=== PATIENT | female | born 1955 | race Caucasian/White ===

== ENCOUNTER 2017-02-18 22:31 | Emergency (ER) | payer OTHER ==
[~2017-02-18] VITALS: Ht 152.4 cm; Wt 66.0 kg
[2017-02-18 22:47] VITALS: Ht 152.4 cm; Wt 66.0 kg
--- NOTE | 2017-02-19 01:43 | ERD ---
ER Documentation Chief Complaint Date/Time DATE: 02/19/17 TIME: 01:40 Chief Complaint foreign body is stuck in the ureteral meatus and vaginal area after ultrasound was done 2 days ago HPI 61-year-old female presents here in emergency department for complaints of pain in the ureteral area and vaginal area after a catheter used to help control her bladder got stuck can be removed after doing a vaginal ultrasound. Patient does not have any blood in the urine, does not have any vaginal bleeding. Patient's complaint of pain sharp pain 4/10 scale, feels that it is slanted side towards, and able to remove it, she is here today to have it removed. Patient has an OB appointment tomorrow, and is scheduled to have a surgery to be done on Saturday. ROS All systems reviewed and are negative except as per history of present illness. Medications Home Meds Active Scripts Doxycycline Hyclate* (Doxycycline Hyclate*) 100 Mg Tablet.dr, 100 MG PO BID for 10 Days, TAB Prov:PREET HEMPHILL NP 02/19/17 Metronidazole* (Flagyl*) 500 Mg Tablet, 500 MG PO TID for 10 Days, TAB Prov:PREET HEMPHILL NP 02/19/17 Reported Medications [none] Unknown Strength No Conflict Check 02/19/17 Allergies Allergies: Coded Allergies: No Known Allergy (Unverified , 02/18/17) PMhx/Soc Medical and Surgical Hx: pt denies Medical Hx, pt denies Surgical Hx Hx Alcohol Use: No Hx Substance Use: No Hx Tobacco Use: No Smoking Status: Never smoker FmHx Family History: No coronary disease, No diabetes, No other Physical Exam Vitals Vital Signs Date Time Temp Pulse Resp B/P Pulse Ox O2 Delivery O2 Flow Rate FiO2 02/18/17 22:47 96.5 69 18 146/69 98 Physical Exam GENERAL: The patient is well developed and appropriate for usual state of health, in no apparent distress. CHEST: Clear to auscultation bilaterally. There are no rales, wheezes or rhonchi. HEART: Regular rate and rhythm. No murmurs, clicks, rubs or gallops. No S3 or S4. ABDOMEN: Soft, nontender and nondistended. Good bowel sounds. No rebound or guarding. No gross peritonitis. No gross organomegaly or masses. No Browne sign or McBurney point tenderness. BACK: No midline or flank tenderness. EXTREMITIES: Equal pulses bilaterally. There is no peripheral clubbing, cyanosis or edema. No focal swelling or erythema. Full range of motion. Grossly neurovascularly intact. NEURO: Alert and oriented. Cranial nerves 2-12 intact. Motor strength in all 4 extremities with 5/5 strength. Sensation grossly intact. Normal speech and gait. SKIN: There is no apparent rash or petechia. The skin is warm and dry. HEMATOLOGIC AND LYMPHATIC: There is no evidence of excessive bruising or lymphedema. No gross cervical, axillary, or inguinal lymphadenopathy. VAGINAL: note white pessary in the vaginal vault, with yellowish discharge, foul smelling noted. no CMT Results 24 hrs Current Medications Medications (Trade) Dose Ordered Sig/Candido Route PRN Reason Start Time Stop Time Status Last Admin Dose Admin Ceftriaxone Sodium (Rocephin) 1 gm ONCE ONCE IM 02/19/17 02:00 02/19/17 02:01 DC 02/19/17 02:20 Procedures/MDM Medical decision making: Patient symptoms most likely is consistent with foreign body, pessary noted in the vaginal vault, most likely with secondary infection, patient was given IM Rocephin here in the emergency department, will be given doxycycline and Flagyl, no symptoms of pelvic inflammatory disease at this time, not febrile, no vomiting, no symptoms of any sepsis at this time, no symptoms of any toxic shock syndrome. Patient has an appointment with OB doctor tomorrow, is advised to follow-up with her tomorrow for further evaluation of symptoms. Patient was advised to return to emergency department for any worsening symptoms. Disposition: Home. Stable Departure Diagnosis: Primary Impression: Vaginal foreign body Encounter type: initial encounter Qualified Code: T19.2XXA - Foreign body in vagina, initial encounter Condition: Stable Patient Instructions: Vaginal Foreign Body, Removed (Adult) PREET HEMPHILL NP Feb 19, 2017 01:43
[2017-02-19] MEDS ORDERED: METR500T PO (01:57)
[2017-02-19] MEDS ORDERED: DOXY100T20 PO (01:57)
[2017-02-19] MEDS ORDERED: CEFTRIAXONE 1 GM INJ IM ONE (02:00)
[2017-02-20] MEDS ORDERED: ATOR10TA65 PO (07:06)
[2017-02-20] MEDS ORDERED: LEVO0.5P MC (07:06)
== END 2017-02-19 01:57 | disposition home or self-care (01) ==
LOC: FTE 22:31
DX: T19.2XXA Foreign body in vulva and vagina, initial encounter (principal); X58.XXXA Exposure to other specified factors, initial encounter; Y92.9 Unspecified place or not applicable
CPT/HCPCS: 96372; J0696; Z7502

== ENCOUNTER 2017-02-20 05:59 | Inpatient (IN) | payer OTHER ==
--- NOTE | 2017-02-18 12:41 | PREOPHP ---
DATE OF ADMISSION: 02/19/2017 PROCEDURE: Vaginal hysterectomy surgical approach. HISTORY OF PRESENT ILLNESS: This is a 61-year-old female who is IV, para III, section x1, 2 vaginal deliveries, 1 and 3 living children. The patient's last period was at age 48. She has vaginal prolapse and she had been having difficulties urinating due to the bladder coming outside herself and the uterus also coming outside herself for the last 1 year. She has not been sexually active. She also suffers from constipation and she would like to have these surgically approached. ALLERGIES: THE PATIENT HAS NO ALLERGIES. SOCIAL HISTORY: She has no history of drug use. She does not drink or smoke. FAMILY HISTORY: Hypertension, breast cancer, heart attacks, diabetes, strokes, epilepsy, kidney stones in the past. REVIEW OF SYSTEMS: The review of system is non-contributory. MEDICATIONS: She is on Anusol for hemorrhoids. Atorvastatin for cholesterol. Calcium, Cyclobenzaprine 10 mg at bedtime. Flonase, ibuprofen, thyroid, Maxalt, omeprazole and something for cough like to lisa GRIFFITH. PHYSICAL EXAMINATION: GENERAL: The patient's general appearance is good. VITAL SIGNS: The blood pressure is 120/78, pulse is 80, and she is afebrile. She weighs 145, she is 5 feet and 1 inch. HEENT: The head and neck is normal. BREASTS: Soft, nontender, no masses. LUNGS: Clear. HEART: Normal sinus rhythm. BACK: Normal. ABDOMEN: Soft, nontender, no masses. GENITALIA: Bladder and cervix that is outside. The vagina is very small. There is a rectocele as well. Uterus retroverted, normal size. Adnexa negative. RECTAL: Examination is normal. EXTREMITIES: Normal. DIAGNOSIS: 1. Complete uterovaginal prolapse. 2. Urinary retention. 3. Mixed incontinence. 4. Rectocele with constipation. PLAN: She is undergoing a vaginal total hysterectomy, anterior- posterior repair with a sling and a graft. She has been advised of the possible risks and possible complications of the procedure with alternatives and options. Written information was provided. She was given the option of undergoing the procedure with the sling and without the sling, with all the possible complications of the sling. She understood everything and agreed to go ahead with the sling and a graft, and she was given the possible alternatives and options, written information had been also provided about that and she agreed to go ahead with the procedure. With full understanding and no more questions. Dictated By: Filomena Guerrier MD /isabel/mina /Document#: [id number]
[2017-02-19 09:23] VITALS: BMI 27.1
[~2017-02-20] VITALS: Ht 152.4 cm; Wt 64.0 kg
[2017-02-20] VITALS (22 sets, daily range): BP systolic 110–135; BP diastolic 51–71; PULSE 61–98; RESP 8–20; Ht 152.4 cm; Wt 64.0 kg
[~2017-02-20 05:59] MED LIST: DOXY100T20 PO; METR500T PO
[2017-02-20] MEDS ORDERED: CEFAZOLIN 2 GM/50 ML (PMX) 50 ML IVPB SCH (06:00)
[2017-02-20] MEDS ORDERED: DEXTROSE 5%-LR 1,000 ML IV SCH (06:35)
[2017-02-20] MEDS ORDERED: EPHEDrine SULFATE 50 MG/5 ML SYG ONE (07:00)
[2017-02-20] MEDS ORDERED: CEFAZOLIN 1 GM INJ ONE (07:00)
[2017-02-20] MEDS ORDERED: ATOR10TA65 PO (07:06)
[2017-02-20] MEDS ORDERED: LEVO0.5P MC (07:06)
--- NOTE | 2017-02-20 07:48 | HPN ---
Date/Time of Note Date/Time of Note DATE: 02/20/17 TIME: 07:47 Interval H&P Admission Note Pt. seen H&P reviewed: No system changes ERNESTO WONG MD Feb 20, 2017 07:48
[2017-02-20] MEDS ORDERED: FENTAnyl 50 MCG/ML VIAL ONE (07:55)
[2017-02-20] MEDS ORDERED: SUCCINYLCHOLINE CHLORIDE 100 MG/5 ML SYG IV ONE (07:55)
[2017-02-20] MEDS ORDERED: LIDOCAINE 2% (SDV) 5 ML INJ ONE (07:55)
[2017-02-20] MEDS ORDERED: PROPOFOL 20 ML ONE (07:55)
[2017-02-20] MEDS ORDERED: MIDAZOLAM 1 MG/ML 2 ML INJ ONE (07:55)
[2017-02-20] MEDS ORDERED: LEVOTHYROXINE 50 MCG TAB PO ONE (08:00)
[2017-02-20] MEDS ORDERED: HYDROmorphONE 1 MG/ML SYG IV PRN (08:00)
[2017-02-20] MEDS ORDERED: DIPHENHYDRAMINE 50 MG CAP PO PRN (08:00)
[2017-02-20] MEDS ORDERED: ZOLPIDEM 5 MG TAB PO PRN (08:00)
[2017-02-20] MEDS ORDERED: HYDROCODONE/APAP (5/325) TAB PO PRN (08:00)
[2017-02-20] MEDS ORDERED: BISACODYL (EC) 5 MG TAB PO PRN (08:00)
[2017-02-20] MEDS ORDERED: ONDANSETRON 4 MG INJ ONE (08:40)
[2017-02-20] MEDS ORDERED: HYDROmorphONE 2 MG/ML SYG ONE (08:40)
[2017-02-20] MEDS ORDERED: ACETAMINOPHEN 1000MG/100ML IV 100 ML ONE (08:40)
[2017-02-20] MEDS ORDERED: ROCURONIUM 50 MG INJ ONE (08:40)
[2017-02-20] MEDS ORDERED: DEXAMETHASONE 4 MG/ML 1 ML INJ ONE (08:40)
[2017-02-20] MEDS ORDERED: METOCLOPRAMIDE 10 MG INJ ONE (08:40)
[2017-02-20] MEDS: BUPIVACAINE 0.5%/EPI (SDV) 10 ML INJ ONE ×2 (08:45→10:26)
[2017-02-20] MEDS ORDERED: THROMBIN 5000 UNIT VIAL ONE (09:42)
[2017-02-20] MEDS ORDERED: POLYMYXIN/BACITRACIN 1L IRRIG ONE (09:42)
[2017-02-20] MEDS ORDERED: BUPIVACAINE 0.5%/EPI (SDV) 10 ML INJ ONE (09:46)
[2017-02-20] MEDS ORDERED: NEOSTIGMINE 3 MG/3 ML SYRINGE ONE (09:48)
[2017-02-20] MEDS ORDERED: GLYCOPYRROLATE 0.4 MG INJ ONE (09:48)
[2017-02-20] MEDS ORDERED: DIPHENHYDRAMINE 50 MG INJ IV PRN (10:00)
[2017-02-20] MEDS ORDERED: oxyCODONE 5 MG TAB PO PRN (10:00)
[2017-02-20] MEDS ORDERED: HYDROmorphONE (0.2 MG/ML) 10ML SYG IV PRN ×2 (10:00)
[2017-02-20] MEDS ORDERED: FENTAnyl 50 MCG/ML VIAL IV PRN (10:00)
[2017-02-20] MEDS ORDERED: ONDANSETRON 4 MG INJ IV PRN (10:00)
[2017-02-20] MEDS ORDERED: PROCHLORPERAZINE 10 MG INJ IV PRN (10:00)
[2017-02-20] MEDS ORDERED: MEPERIDINE 25 MG INJ IV PRN (10:00)
[2017-02-20] MEDS: LACTATED RINGER'S 1,000 ML IV SCH ×2 (10:46→15:38)
--- NOTE | 2017-02-20 10:51 | OPR ---
Date/Time of Note Date/Time of Note DATE: 02/20/17 TIME: 10:45 Operative Report Free Text/Dictation TOTAL VAGINAL HYSTERECTOMY BILATERAL SALPINGECTOMY A&P REPAIR, OBTRYX SUBURETHRAL SLING ACELL AND XENFORM GRAFT CYSTOSCOPY Procedure Date: Feb 20, 2017 Preoperative Diagnosis COMPLETE UTEROVAGINAL PROLAPSE MIXED INCONTINENCE CONSTIPATION PELVIC PAIN Postoperative Diagnosis SAME Surgeon: ERNESTO WONG MD Head End Desizing Machine Operator: MADELEINE VIZCARRA MD Anesthesia Type: general Anesthesiologist: NARA CHEATHAM MD Estimated Blood Loss: 10 - 50 ml's Transfusion Required: no Specimens UTERUS,TUBES AND VAGINAL MUCOSA Grafts/Implants ACELL,AND XENFORM GRAFT OBTRYX SLING Complications: no Pt Condition Post Procedure: stable Disposition: PACU ERNESTO WONG MD Feb 20, 2017 10:51
--- NOTE | 2017-02-20 11:53 | OPR ---
DATE OF OPERATION: 02/20/2017 OPERATION PERFORMED: Vaginal total hysterectomy, bilateral salpingectomy, anterior and posterior colporrhaphy, Obtryx suburethral sling, Xenform graft, ACell graft and cystoscopy. ANESTHESIA: Under general anesthesia with Dr. Painter. PREOPERATIVE DIAGNOSES: 1. Complete uterovaginal prolapse. 2. Mixed incontinence. 3. Constipation. POSTOPERATIVE DIAGNOSES: 1. Complete uterovaginal prolapse. 2. Mixed incontinence. 3. Constipation. SURGEON: Dr. Guerrier. ANESTHESIOLOGIST: Dr. Painter. HAT LINING BLOCKER: Dr. Foley. ESTIMATED BLOOD LOSS: Minimal. COMPLICATIONS: None. OPERATIVE PROCEDURE: The patient was given general anesthesia, placed in the lithotomy position. The perineal and vaginal area were prepped and draped, and the cervix was noted to be at the introitus. The cervix was grabbed with a Teo clamp and injection of Xylocaine and epinephrine were given at the cervicovaginal junction all around the cervix. The posterior cul- de-sac was found. The anterior cul-de-sac was found and the cardinal ligaments were cauterized with a bipolar ligature instrument under 3 lights for wattage. The uterine vessels were also ligated with fulguration with the LigaSure instrument. The uterus was inverted, and the adnexal pedicles were clamped with Samara clamps, removing the uterus. The adnexal pedicles were sutured with figure-of-8 sutures with #1 Vicryl and this was double ligated with the same stitch. The hemostasis was good. At this time, the chips were removed using the ligature instrument with hydrosalpinx in both sides. The hemostasis was good and the peritonealization was done after checking that the ovaries were normal. They were both very atrophic and normal. The peritonealization of the pelvic area was done with #0 pursestring suture to the perineum. The cardinal ligaments were tied to each lateral side and both ligaments stitches were brought to the posterior and anterior vaginal cuff externally. The vaginal opening was closed in a vertical fashion with a #2-0 Vicryl and tying the adnexal pedicles, the left of the vaginal cuff was observed. Now a Ware catheter was placed in the bladder. A midline incision was made 2 cm below the urethral meatus all the way down to the vaginal cuff injecting the Xylocaine and epinephrine and a midline incision was made. The cystocele was from the anterior vaginal mucosa. The cystocele was reduced with a pursestring suture with 2-0 Vicryl. At this time, the Obtryx needle was going to be introduced through the obturator membrane and be retrieved urethrally, vaginally. The area of entrance was marked with a pen parallel to the clitoris, 2 cm below the adductor longus tendon. A romy was done, and the skin was opened with a knife and the needles were introduced. The Obtryx sling was attached to the needles, the needles were retrieved back to the same obturator membrane area and the arms of the Obtryx were passed through the obturator canal. A piece of ACell and a piece of Xenform were applied underneath the Obtryx sling to separate the sling from the ureteral area. These 2 grafts were attached to the side of the connective tissue ureterally with a 2-0 Vicryl suture. The sling was adjusted and was covered up again on the other side with a piece of Xenform and a piece of ACell graft. Surgiflo was use to both corners to control venous bleeding, which had been controlled very tightly. The vagina was closed with interrupted sutures with 2-0 Vicryl. A cystoscopy was done by removing the Ware catheter and injection of saline was done through the bag to the bladder. The bladder patrick were checked and they were in good condition. Both ureters were draining urine with no problems. The cystoscopy was finished by removing the instruments and re-applying the Ware catheter. The posterior repair was started by making a triangular incision at the perineal area. Injection of Xylocaine and epinephrine were given in the midline posteriorly about 5 cm up the vaginal canal. A midline incision was made. The rectocele was from the posterior vaginal mucosa. The rectocele was reduced with 2-0 Vicryl sutures and a piece of vaginal mucosa was removed and the vagina was closed with 2-[address] the way down vertically. At the perineal area, an 0 Vicryl suture was passed through the levator and then from 1 side to the other side obtaining a good lifting of the perineal area. The superficial layers were closed with 2-0 Vicryl and 3-0 Vicryl, and the patient tolerated the procedure well at this time and blood loss was minimal. The urine was clear at the end of the procedure. Xeroform gauze was left in the vagina for pressure and the urine was clear at the end of the procedure. The patient tolerated the procedure well and left the OR awake and stable. Sponge counts, instrument counts, needle counts were correct, and intravenous antibiotics were given for prophylaxis. Dictated By: Filomena Guerrier MD /isabel/valarie /Document#: [id number]
[2017-02-20] MEDS: CEFAZOLIN 1 GM/50 ML (PMX) 50 ML IVPB SCH ×2 (13:43→21:12)
[2017-02-20] MEDS: METOCLOPRAMIDE 10 MG TAB PO SCH ×2 (13:44→17:42)
[2017-02-20] MEDS: ATORVASTATIN 10 MG TAB PO SCH (21:12)
[2017-02-20] MEDS: CEPASTAT LOZENGE MT PRN (21:12)
[2017-02-21] VITALS: BP 142/64; RESP 18
[2017-02-21] MEDS: CEPASTAT LOZENGE MT PRN
[2017-02-21] MEDS: HYDROCODONE/APAP (5/325) TAB PO PRN ×3 (01:19→18:33)
[2017-02-21] MEDS: KETOROLAC 30 MG INJ IV PRN (03:33)
[2017-02-21 05:26] LABS: BASOPHILS % 0.1 % (0.0-2.0); HEMATOCRIT 37.1 % (37.0-47.0); HEMOGLOBIN 12.4 g/dl (12.0-16.0); LYMPHOCYTES # 0.9 10^3/ul (0.8-2.9); LYMPHOCYTES % 9.6 % (15.0-51.0); MEAN CORPUSCULAR HEMOGLOBIN 30.1 pg (29.0-33.0); MEAN CORPUSCULAR HGB CONC 33.4 g/dl (32.0-37.0); MEAN PLATELET VOLUME 10.7 fl (7.4-10.4); MONOCYTE # 0.7 10^3/ul (0.3-0.9); NEUTROPHIL # 7.5 10^3/ul (1.6-7.5); NEUTROPHILS % 81.9 % (39.0-77.0); PLATELET COUNT 220 10^3/UL (140-415); RED BLOOD COUNT 4.12 10^6/ul (4.20-5.40); RED CELL DISTRIBUTION WIDTH 12.3 % (11.5-14.5); WHITE BLOOD COUNT 9.2 10^3/ul (4.8-10.8)
[2017-02-21] MEDS: CEFAZOLIN 1 GM/50 ML (PMX) 50 ML IVPB SCH (05:43)
[2017-02-21] MEDS: METOCLOPRAMIDE 10 MG TAB PO SCH ×5 (05:43→23:46)
[2017-02-21 05:56] LABS: CREATININE 0.74 mg/dl (0.44-1.00); POTASSIUM 4.7 mmol/L (3.5-5.1)
[2017-02-21 08:17] VITALS: BP 116/51; RESP 19
[2017-02-21] MEDS: LACTATED RINGER'S 1,000 ML IV SCH ×2 (08:46)
--- NOTE | 2017-02-21 10:59 | PN ---
Date/Time of Note Date/Time of Note DATE: 02/21/17 TIME: 10:57 Assessment/Plan Lines/Catheters IV Catheter Type (from Nrsg): Peripheral IV Ware in Place (from Nrsg): Yes Subjective 24 Hr Interval Summary DOING WELL,AFEBRILE, WITH ARTHRITIS PAIN ALL OVER HER BODY. OTHERWISE UP TO BATHROOM URINATING AND PASSING GASES Constitutional: improved Feeding: advancing diet Pain Control: well controlled Detailed Summary Eyes: no complaints ENT: no complaints Respiratory: no complaints Cardiovascular: no complaints Gastrointestinal: no complaints Genitourinary: no complaints Musculoskeletal: no complaints Skin: no complaints Neurologic: no complaints Endocrine: no complaints Lymphatic: no complaints Psychological: nl mood/affect, no complaints Immunologic: no complaints Exam/Review of Systems Vital Signs Vitals Vital Signs Date Time Temp Pulse Resp B/P Pulse Ox O2 Delivery O2 Flow Rate FiO2 02/21/17 08:17 98.0 69 19 116/51 99 02/20/17 14:55 Room Air 02/20/17 11:45 2.0 Intake and Output 02/20/17 02/20/17 02/21/17 15:00 23:00 07:00 Intake Total 1350 ml 620 ml 2425 ml Output Total 550 ml 650 ml 1600 ml Balance 800 ml -30 ml 825 ml Exam Constitutional: alert, oriented, well developed Psych: nl mood/affect, no complaints Head: atraumatic, normocephalic Eyes: EOMI, nl conjunctiva, nl lids, nl sclera ENMT: mucosa pink and moist, nl external ears & nose, nl lips & teeth, nl nasal mucosa & septum Neck: non-tender, supple Respiratory: clear to auscultation, normal air movement Cardiovascular: nl pulses, regular rate and rhythm Gastrointestinal: nl liver, spleen, non-tender, soft Musculoskeletal: nl extremities to inspection, nl gait and stance Extremities: normal pulses Neurological: OSTEOPATHIC NEUROLOGIST II-XII intact, nl mental status, nl speech, nl strength Skin: nl turgor, rash or lesions Lymph: nl lymph nodes Results Result Diagram: 02/21/17 0431 02/21/17 043 ERNESTO WONG MD Feb 21, 2017 10:59
[2017-02-21 12:00] VITALS: BP 121/64; RESP 18
[2017-02-21] MEDS: predniSONE 2.5 MG TAB PO SCH (12:32)
[2017-02-21 20:00] VITALS: BP 143/68; RESP 18
[2017-02-21] MEDS: ATORVASTATIN 10 MG TAB PO SCH (20:20)
[2017-02-22 01:45] VITALS: BP 138/60; RESP 18
[2017-02-22] MEDS: METOCLOPRAMIDE 10 MG TAB PO SCH ×2 (05:20→11:45)
[2017-02-22 07:42] VITALS: BP 162/72; RESP 19
[2017-02-22] MEDS: predniSONE 2.5 MG TAB PO SCH (07:55)
[2017-02-22 09:30] VITALS: BP 121/59; RESP 19
[2017-02-22 14:00] VITALS: BP 141/61; RESP 18
--- NOTE | 2017-02-22 15:51 | PD.PPDC ---
OPHTHALMIC DISPENSER Discharge Instruction Condition Patient Condition: Good Diet Diet: Resume Regular Diet Activity/Restrictions Activity: Normal Activity May Shower Restrictions: No Exercising No Lifting No Driving No Sexual Activity Nothing in the Vagina No [place] No Tampons, douche Follow-up Follow-up with Physician: 2, Week/Weeks Return to clinic for PATRON ATTENDANT Instructions: Fever greater than 101 Chills Worsening abdominal pain Excessive Vaginal Bleeding More than 2 pads per hour Unable to tolerate diet Surgical Instructions: Incisional Drainage Incisional Redness ERNESTO WONG MD Feb 22, 2017 15:51
--- NOTE | 2017-02-22 15:59 | DS ---
Date/Time of Note Date/Time of Note DATE: 02/22/17 TIME: 15:52 Discharge Summary Admission/Discharge Info Admit Date/Time Feb 20, 2017 at 05:59 Discharge Date/Time February 22, 2017 Discharge Diagnosis Complete uterovaginal prolapse. Mixed incontinence and constipation. Chronic pelvic pain Patient Condition: Good Procedures Vaginal total hysterectomy bilateral. salpingectomy. Anterior and posterior repair. Obtryx sling. Acell and xenform graft Hospital Course This patient underwent vaginal hysterectomy with anterior and posterior repair and sling and the graft and she did very well after surgery. she was ambulatory the first day, the second day she was tolerating diet and passing gases with bowel movement and with pain control with p.o. medications. she was ambulatory and she was not nauseated .\ she was tolerating diet with a bowel movement and she was ambulatory. Her laboratory testing were within normal. She was discharged home on pain medication as needed and to see me in the office as needed or in 1 week for follow-up. Further instructions were given of what to do and not to do at home, and she seems to understand well. She is very anxious to go home because she feels. Home Meds Reported Medications Levothyroxine Sodium (Levothyroxine Sodium) 0.5 Gm Powder, 0 MC 02/20/17 Atorvastatin Calcium (Atorvastatin Calcium) 10 Mg Tablet, 10 MG PO QHS, #30 TAB 02/20/17 Discontinued Reported Medications [none] Unknown Strength No Conflict Check 02/19/17 Discontinued Scripts Doxycycline Hyclate* (Doxycycline Hyclate*) 100 Mg Tablet.dr, 100 MG PO BID for 10 Days, TAB Prov:PREET HEMPHILL NP 02/19/17 Metronidazole* (Flagyl*) 500 Mg Tablet, 500 MG PO TID for 10 Days, TAB Prov:PREET HEMPHILL NP 02/19/17 Primary Care Provider Not On Staff Doctor Time spent on discharge: < 30 minutes ERNESTO WONG MD Feb 22, 2017 15:59
[2017-02-22] MEDS: KETOROLAC 30 MG INJ IV PRN (16:12)
== END 2017-02-22 17:50 | disposition home or self-care (01) | DRG 743 ==
LOC: REC 05:59 → MS1 11:35
PROVIDERS: ADMIT Obstetrics & Gynecology; ATTEND Obstetrics & Gynecology
PROC: 0UTC7ZZ Resection of Cervix, Via Natural or Artificial Opening (ICD-10-PCS; 2017-02-20)
PROC: 0JQC0ZZ Repair Pelvic Region Subcutaneous Tissue and Fascia, Open Approach (ICD-10-PCS; 2017-02-20)
PROC: 0UT77ZZ Resection of Bilateral Fallopian Tubes, Via Natural or Artificial Opening (ICD-10-PCS; 2017-02-20)
PROC: 0JQC0ZZ Repair Pelvic Region Subcutaneous Tissue and Fascia, Open Approach (ICD-10-PCS; 2017-02-20)
PROC: 0TSD0ZZ Reposition Urethra, Open Approach (ICD-10-PCS; 2017-02-20)
PROC: 0UT97ZZ Resection of Uterus, Via Natural or Artificial Opening (ICD-10-PCS; principal; 2017-02-20 07:30)
DX: N81.3 Complete uterovaginal prolapse (principal); E03.9 Hypothyroidism, unspecified; E78.5 Hyperlipidemia, unspecified; N39.46 Mixed incontinence; K59.00 Constipation, unspecified
CPT/HCPCS: 80051; 82565; 84520; 85025; 86850; 86900; 86901; 86920; 87086; 88305; C1771; C1781; J0131; J0690; J1100; J1170; J1885; J2175; J2250; J2405; J2710; J2765; J3010; J7120; J7512; J7999; Q4166

== ENCOUNTER 2018-06-22 02:44 | Emergency (ER) | payer OTHER ==
[~2018-06-22] VITALS: Ht 152.4 cm; Wt 72.3 kg
[~2018-06-22 02:44] MED LIST changes: +ATOR10TA65 PO; -DOXY100T20 PO; +LEVO0.5P MC; -METR500T PO
[2018-06-22 02:49] VITALS: Ht 152.4 cm; Wt 72.3 kg
[2018-06-22] MEDS ORDERED: SOD CHLORIDE 0.9% 500 ML IV STA (03:28)
--- NOTE | 2018-06-22 03:53 | ERD ---
ER Documentation Chief Complaint Chief Complaint C/O POSTERIOR ZARATE AND NAUSEA SINCE LAST NIGHT, C/O LT ARM NUMBNESS HPI During the patient's encounter translation services were utilized Language: [place] Source: Family 63-year-old female history of newly diagnosed hypertension recently starting hydrochlorothiazide first dose today. She took her pill around 2 PM. Around 5 PM she started to develop a bandlike headache with associated paresthesias. Numbness and tingling to her bilateral upper extremities and left lower extremit y. Symptoms are improving. Headache was noted to be gradual in 6 out of 10. No chest pain or chest pressure noted. She also notes dry mouth. Symptoms are slightly improved with Tylenol at home. ROS All systems reviewed and are negative except as per history of present illness. Medications Home Meds Active Scripts Amlodipine Besylate* (Norvasc*) 5 Mg Tablet, 5 MG PO DAILY for 30 Days, TAB Prov:YOAN RYAN MD 06/22/18 Reported Medications Levothyroxine Sodium (Levothyroxine Sodium) 0.5 Gm Powder, 0 MC 02/20/17 Atorvastatin Calcium (Atorvastatin Calcium) 10 Mg Tablet, 10 MG PO QHS, #30 TAB 02/20/17 Allergies Allergies: Coded Allergies: No Known Allergy (Unverified , 02/18/17) PMhx/Soc History of Surgery: Yes (CSECTION X 1) Anesthesia Reaction: No Hx Neurological Disorder: No Hx Respiratory Disorders: No Hx Cardiac Disorders: Yes (HLD) Hx Psychiatric Problems: No Hx Miscellaneous Medical Probl: No Hx Alcohol Use: No Hx Substance Use: No Hx Tobacco Use: No FmHx Family History: No diabetes Physical Exam Vitals Vital Signs Date Temp Pulse Resp B/P (MAP) Pulse Ox O2 O2 Flow FiO2 Time Delivery Rate 06/22/18 98.0 71 20 140/78 98 Room Air 03:15 (98) 06/22/18 96.0 84 19 164/79 100 02:49 (107) Physical Exam General: Well developed, well nourished, no acute distress Head: Normocephalic, atraumatic. Eyes: Pupils equally reactive, EOM intact ENT: Moist mucous membranes Neck: Supple, no lymphadenopathy Respiratory: Lungs clear bilaterally, no distress Cardiovascular: RRR, no murmurs, rubs, or gallops Abdominal: Soft, non-tender, non-distended, no peritoneal signs : Deferred MSK: No edema, no unilateral swelling, 5/5 strength Neurologic: Alert and oriented, moving all extremities, normal speech, no focal weakness, no cerebellar signs Skin: No rash Psych: Normal mood Result Diagram: 06/22/1833906/22/18339 Results 24 hrs Laboratory Tests Test 06/22/18 03:40 White Blood Count 7.8 10^3/ul Red Blood Count 4.30 10^6/ul Hemoglobin 12.6 g/dl Hematocrit 38.3 % Mean Corpuscular Volume 89.1 fl Mean Corpuscular Hemoglobin 29.3 pg Mean Corpuscular Hemoglobin Concent 32.9 g/dl Red Cell Distribution Width 12.4 % Platelet Count 276 10^3/UL Mean Platelet Volume 10.5 fl Immature Granulocytes % 0.400 % Neutrophils % 81.6 % Lymphocytes % 12.5 % Monocytes % 4.4 % Eosinophils % 0.3 % Basophils % 0.8 % Nucleated Red Blood Cells % 0.0 /100WBC Immature Granulocytes # 0.030 10^3/ul Neutrophils # 6.3 10^3/ul Lymphocytes # 1.0 10^3/ul Monocytes # 0.3 10^3/ul Eosinophils # 0.0 10^3/ul Basophils # 0.1 10^3/ul Nucleated Red Blood Cells # 0.0 10^3/ul Sodium Level 137 mmol/L Potassium Level 3.8 mmol/L Chloride Level 102 mmol/L Carbon Dioxide Level 24 mmol/L Anion Gap 11 Blood Urea Nitrogen 13 mg/dl Creatinine 0.63 mg/dl Est Glomerular Filtrat Rate mL/min > 60 mL/min Glucose Level 164 mg/dl Calcium Level 9.7 mg/dl Troponin I < 0.012 ng/ml Current Medications Medications Dose Sig/Candido Start Time Status Last (Trade) Ordered Route PRN Stop Time Admin Dose Reason Admin Sodium 500 ml @ Q1H STAT 06/22/18 DC 06/22/18 Chloride 500 mls/hr IV 03:28 04:01 06/22/18 04:27 Procedures/MDM EKG, MONITORS, & DIAGNOSTIC IMAGING: EKG: I reviewed and interpreted a 12-lead EKG. Rhythm: Normal sinus rhythm ST Changes: No contiguous ST segment elevations T waves: No contiguous T wave inversions Impression: [No evidence of acute cardiac ischemia] CT brain: No acute process per radiologist read LAB INTERPRETATION: * No evidence of infection or cardiac ischemia MEDICAL DECISION MAKING: The patient's presentation and symptoms seem very consistent with adverse drug reaction. Hydrochlorothiazide could present with a number of these symptoms including dizziness, headache, paresthesias, restlessness, nausea. I believe the majority of her symptoms are likely explained by this new medication. The patient exhibits a low pretest probability for stroke, acute coronary syndrome or electrolyte disturbance. However, given the patient's description, concern, age I do believe it to be reasonable to check basic blood work, EKG, troponin, CT brain. Reassurance provided. I would recommend discontinuing hydrochlorothiazide and initiation of another antihypertensive medication such as Norvasc. ER COURSE: * Patient continues to be well-appearing in the emergency room setting. Laboratory testing diagnostic imaging is negative. The patient can be safely discharged as documented above. * Again likely adverse drug reaction CONSULTATION: [None] DISPOSITION PLAN: The patient does not have an identifiable emergent medical condition that warrants inpatient hospitalization at this time. The patient is deemed safe for discharge with outpatient follow-up. We discussed follow up with the patient's primary care doctor within 24 to 48 hours as needed. We also discussed return to the emergency room for worsening symptoms or worsening condition. Outpatient referral: [None required] Discharge Medications: Norvasc Departure Diagnosis: Primary Impression: Adverse drug reaction Encounter type: initial encounter Qualified Codes: T50.905A - Adverse effect of unspecified drugs, medicaments and biological substances, initial encounter Condition: YOAN Duff MD Jun 22, 2018 03:53
[2018-06-22] MEDS ORDERED: AMLO5TAB4 PO (04:45)
[2018-06-22 06:14] VITALS: BP 117/71; PULSE 41; RESP 17
== END 2018-06-22 06:14 | disposition home or self-care (01) ==
LOC: E/R 02:44
DX: R11.0 Nausea (principal); R40.2142 Coma scale, eyes open, spontaneous, at arrival to emergency department; R40.2362 Coma scale, best motor response, obeys commands, at arrival to emergency department; R40.2252 Coma scale, best verbal response, oriented, at arrival to emergency department; T50.2X5A Adverse effect of carbonic-anhydrase inhibitors, benzothiadiazides and other diuretics, initial encounter; I10 Essential (primary) hypertension
CPT/HCPCS: 36415; 70450; 80048; 84484; 85025; 93005; 99285; J7040

== ENCOUNTER 2019-01-08 06:51 | Day surgery (SDC) | payer OTHER, MEDICAID ==
[~2019-01-08] VITALS: Ht 152.4 cm; Wt 70.3 kg
[~2019-01-08 06:51] MED LIST changes: +AMLO5TAB4 PO; +MED FOR OSTEOPOROSIS; +OMEPRAZOLE; +[UNRECOGNIZED DRUG - OTHER]
[2019-01-08 07:05] VITALS: Ht 152.4 cm; Wt 70.3 kg
[2019-01-08 07:38] VITALS: BP 117/157; PULSE 59; RESP 24
[2019-01-08] MEDS ORDERED: FENTAnyl 50 MCG/ML VIAL ONE (08:27)
[2019-01-08] MEDS ORDERED: MIDAZOLAM 1 MG/ML 2 ML INJ ONE ×2 (08:27)
[2019-01-08 08:36] VITALS: BP 113/55; RESP 16
== END 2019-01-08 12:35 | disposition home or self-care (01) ==
LOC: GIL 06:51
PROVIDERS: ATTEND Internal Medicine Gastroenterology
DX: Z12.11 Encounter for screening for malignant neoplasm of colon (principal); K64.8 Other hemorrhoids; D12.5 Benign neoplasm of sigmoid colon
CPT/HCPCS: 45380; 88305; J2250; J3010